=== PATIENT | male | born 1935 | race Caucasian/White ===

== ENCOUNTER → 2018-10-03 | Outpatient (CLI) | payer OTHER ==
[~2018-10-03] MED LIST: AMLO5TAB7 PO; ASPI-1197 PO; CARV12.511 PO; CLOP75TA32 PO; GLUC-206 PO; LORA-705 PO; MAGNESIUM WITH ZINC PO; MULT-1258 PO; RANO500T2 PO; ROSE HIPS PO; ROSU20TA PO; SAW450CA7 PO; VIT B12 PO; VIT C PO; VIT E PO; thyroxine PO
== END | disposition home or self-care (01) ==
LOC: SHCH 08:08
PROVIDERS: ATTEND Internal Medicine Cardiovascular Disease
DX: I87.2 Venous insufficiency (chronic) (peripheral) (principal)
CPT/HCPCS: 93970

== ENCOUNTER 2019-09-29 12:54 | Inpatient (IN) | payer OTHER ==
[~2019-09-29] VITALS: Ht 175.3 cm; Wt 88.6 kg
[~2019-09-29 12:54] MED LIST changes: -AMLO5TAB7 PO; +AMLO5TAB9 PO; -ROSU20TA PO; +ROSU20TA23 PO
[2019-09-29] MEDS ORDERED: ACETAMINOPHEN 325 MG TAB PO PRN (13:30)
[2019-09-29] MEDS ORDERED: PANTOPRAZOLE SODIUM 80 MG in NS 100ML IVP SCH (13:30)
[2019-09-29] MEDS ORDERED: ONDANSETRON HCL 4 MG/2 ML VIAL IVP PRN (13:30)
[2019-09-29 13:58] LABS: BASOPHILS % (AUTO) 0.3 % (0.0-5.0); EOSINOPHILS % (AUTO) 1.4 % (0.0-8.0); HEMATOCRIT 26.3 % (42-54); LYMPHOCYTES % (AUTO) 15.2 % (21.0-51.0); MEAN CORPUSCULAR HEMOGLOBIN 33.4 pg (27.0-33.0); MEAN CORPUSCULAR HGB CONC 34.3 g/dL (32.0-36.0); MEAN CORPUSCULAR VOLUME 97.5 fL (79-99); MONOCYTES % (AUTO) 8.9 % (3.0-13.0); NEUTROPHILS % (AUTO) 74.2 % (40.0-77.0); NUCLEATED RED BLOOD CELLS 0.1 % (0.0-0.19); PLATELET COUNT (AUTO) 132 K/uL (130-400); RED CELL DISTRIBUTION WIDTH 14.8 % (11.0-15.5); WHITE BLOOD COUNT (AUTO) 9.8 K/uL (4.8-10.8)
[2019-09-29 14:17] LABS: INR 1.09 (0.85-1.15); PROTHROMBIN TIME 11.4 SEC (9.6-11.6)
[2019-09-29 14:18] LABS: CREATININE 1.5 mg/dL (0.5-1.5); POTASSIUM 4.1 mmol/L (3.5-5.1)
[2019-09-29 14:23] LABS: ALBUMIN 2.9 g/dL (3.5-5.0); BILIRUBIN,TOTAL 0.4 mg/dL (0.2-1.0); TOTAL PROTEIN, SERUM 5.6 g/dL (6.0-8.3)
[2019-09-29] MEDS ORDERED: SODIUM CHLORIDE 0.9% 100 ML IV ONE (14:26)
[2019-09-29 15:30] VITALS: BP 106/68
--- NOTE | 2019-09-29 16:10 | NUR ---
DR ALVA OFFICE CB SPOKE TO DARIN REGARDING PT HX AND MEDICATIONS. PER DARIN SHE WILL CB WITH ORDERS
[2019-09-29] MEDS ORDERED: NAPR220T57 PO (17:51)
[2019-09-29] MEDS ORDERED: SAW1CAPS7 PO (17:51)
[2019-09-29] MEDS ORDERED: GLUC-252 PO (17:51)
[2019-09-29] MEDS ORDERED: MULT-1289 PO (17:51)
[2019-09-29] MEDS ORDERED: CLOP75TA14 PO (17:51)
[2019-09-29] MEDS ORDERED: LEVO112T7 PO (17:51)
[2019-09-29] MEDS ORDERED: CALC-116 PO (17:57)
[2019-09-29] MEDS ORDERED: ROSU20TA31 PO (17:57)
[2019-09-29] MEDS ORDERED: BETA1TAB18 PO (17:57)
[2019-09-29] MEDS ORDERED: CARV6.25 PO (17:57)
[2019-09-29] MEDS ORDERED: CARV12.511 PO (17:57)
[2019-09-29] MEDS ORDERED: LORA10TA7 PO (17:57)
[2019-09-29] MEDS ORDERED: BUDE10.2 IH (17:57)
[2019-09-29] MEDS ORDERED: FLUT16H NASAL (17:57)
[2019-09-29 20:03] VITALS: BP 96/63
--- NOTE | 2019-09-29 20:07 | NUR ---
PT REFUSING TEDS FOR NIGHT TIME
[2019-09-29 20:39] LABS: HEMATOCRIT 23.5 % (42-54)
--- NOTE | 2019-09-29 22:59 | NUR ---
DARIN WITH DR. ALVA CALLED ORDERS FOR EGD W [facility] AT[address] NEEMA BERRIOS AWARE STATED WILL VERIFY W DARIN TELEPHONE GIVEN
[2019-09-29 23:20] VITALS: BP 106/76
[2019-09-30] VITALS (19 sets, daily range): BP systolic 83–148; BP diastolic 50–80
[2019-09-30] MEDS ORDERED: LIDOCAINE HCL-MPF 2% 5ML VIAL ONE (10:48)
[2019-09-30] MEDS ORDERED: PROPOFOL 10 MG/ML 20ML VIAL IV ONE (10:48)
[2019-09-30] MEDS ORDERED: GLYCOPYRROLATE 0.2 MG/ML 5 ML VIAL ONE (10:48)
[2019-09-30] MEDS ORDERED: MORPHINE SULFATE 2 MG/ML 1ML SYG IV PRN (11:15)
[2019-09-30] MEDS ORDERED: HYDRALAZINE HCL 20 MG/ML VIAL IV PRN (11:15)
--- NOTE | 2019-09-30 12:33 | NUR ---
DC PLAN PER PATIENT HE IS INDEPENDENT, LIVES WITH SPOUSE, HAS A CANE AND NEBULIZER MACHINE, NO PROVIDER SERVICES AND FEELS SAFE TO RETURN HOME. Addendum: 09/30/19 at 1234 by OLIVE ALVA RN CM Amended: Links added.
[2019-09-30 12:51] LABS: HEMATOCRIT 24.3 % (42-54)
[2019-09-30] MEDS ORDERED: ACET-66 PO (14:24)
[2019-09-30] MEDS ORDERED: FERS325 PO (14:24)
[2019-09-30] MEDS ORDERED: PANT40TA25 PO (14:24)
[2019-09-30] MEDS ORDERED: FERROUS SULFATE 325 MG TABLET.DR PO SCH (21:00)
[2019-10-01] VITALS (8 sets, daily range): BP systolic 99–143; BP diastolic 65–79
[2019-10-01 05:33] LABS: HEMATOCRIT 23.1 % (42-54); MEAN CORPUSCULAR HEMOGLOBIN 33.8 pg (27.0-33.0); MEAN CORPUSCULAR HGB CONC 34.3 g/dL (32.0-36.0); MEAN CORPUSCULAR VOLUME 98.5 fL (79-99); PLATELET COUNT (AUTO) 136 K/uL (130-400); RED BLOOD CELL COUNT(AUTO) 2.34 MIL/uL (4.50-6.20); RED CELL DISTRIBUTION WIDTH 14.9 % (11.0-15.5); WHITE BLOOD COUNT (AUTO) 5.2 K/uL (4.8-10.8)
[2019-10-01 05:56] LABS: CREATININE 1.4 mg/dL (0.5-1.5); POTASSIUM 3.8 mmol/L (3.5-5.1)
[2019-10-01] MEDS: FERROUS SULFATE 325 MG TABLET.DR PO SCH ×2 (10:04→17:24)
[2019-10-01] MEDS: PANTOPRAZOLE SODIUM 40 MG TABLET.DR PO SCH ×2 (10:04→19:44)
[2019-10-01] MEDS ORDERED: TRAMADOL HCL 50 MG TABLET PO PRN (11:30)
[2019-10-01 12:21] LABS: HEMATOCRIT 26.1 % (42-54)
[2019-10-01] MEDS: HYDROCODONE/ACETAMINOPHEN 5/325 MG TAB PO PRN (15:09)
[2019-10-02] MEDS: HYDROCODONE/ACETAMINOPHEN 5/325 MG TAB PO PRN ×2 (01:13→10:34)
[2019-10-02 04:00] VITALS: BP 113/74
[2019-10-02 05:37] LABS: BASOPHILS % (AUTO) 0.5 % (0.0-5.0); EOSINOPHILS % (AUTO) 1.7 % (0.0-8.0); HEMATOCRIT 24.7 % (42-54); LYMPHOCYTES % (AUTO) 19.1 % (21.0-51.0); MEAN CORPUSCULAR HEMOGLOBIN 32.7 pg (27.0-33.0); MEAN CORPUSCULAR HGB CONC 33.6 g/dL (32.0-36.0); MEAN CORPUSCULAR VOLUME 97.2 fL (79-99); MONOCYTES % (AUTO) 9.1 % (3.0-13.0); NEUTROPHILS % (AUTO) 69.6 % (40.0-77.0); PLATELET COUNT (AUTO) 161 K/uL (130-400); RED BLOOD CELL COUNT(AUTO) 2.54 MIL/uL (4.50-6.20); RED CELL DISTRIBUTION WIDTH 15.2 % (11.0-15.5); WHITE BLOOD COUNT (AUTO) 7.8 K/uL (4.8-10.8)
[2019-10-02 05:48] LABS: CREATININE 1.4 mg/dL (0.5-1.5); POTASSIUM 3.9 mmol/L (3.5-5.1)
[2019-10-02 07:30] VITALS: BP 132/82
--- NOTE | 2019-10-02 07:40 | NUR ---
NOTE AAOX3. DENIES PAIN OR DISCOMFORT. AFEBRILE NO DISTRESS OR SOB. BBS CLEAR. C/O LOWER BACK DISCOMFORT AND HAS BEEN GETTING MEDICATION FOR THAT WHILE HE HAS BEEN HERE. DENIES ANY BLOODY STOOLS. HIS LAST BM WAS SUNDAY. CAME IN WITH BLOODY STOOLS AND HE UNDERWENT EGD WITH DR SERRANO YESTERDAY AND HE CONTINUES WITH CLEAR LIQUID DIET. WE WILL CALL DR SERRANO TO ASK WHAT THE PLAN IS MOVING FORWARD. PATIENT IS ASKING IF COLONOSCOPY WILL BE DONE. HGB HAS BEEN STEADY IN THE 8'S RANGE. STANDING ORDER FOR ONE UNIT PRBC TO BE TRANSFUSED IF HGB<7 BUT HAS NOT BEEN NEEDED THOUGH.
--- NOTE | 2019-10-02 10:00 | NUR ---
NOTE HAVE PAGED DR SERRANO THROUGH HIS OFFICE TWICE AND HAVE NOT RECEIVED A CALL FROM HIM. WILL PAGE AGAIN LATER.
[2019-10-02] MEDS: FERROUS SULFATE 325 MG TABLET.DR PO SCH (10:10)
[2019-10-02] MEDS: PANTOPRAZOLE SODIUM 40 MG TABLET.DR PO SCH (10:10)
[2019-10-02 11:00] VITALS: BP 136/82
[2019-10-02 13:03] LABS: HEMATOCRIT 26.1 % (42-54)
--- NOTE | 2019-10-02 14:15 | NUR ---
NOTE AFTER CALLING DR SERRANO OFFICE 3 TIMES THEY HAVE CALLED ME AND GAVE ORDERS FOR OKAY TO DC AND FOLLOW UP WITH HIM IN ONE WEEK. REFER TO CHART FOR ORDERS. NÉSTOR DONALD AND DR SAGASTUME MAKING ROUNDS AT THIS TIME. THEY SPOKE TO PATIENT AND MADE HIM AWARE HE WILL BE DISCHARGED TODAY AFTER DINNER IF HE TOLERATES DIET WELL FOR THEY ORDERED TO ADVANCE IT.
--- NOTE | 2019-10-02 18:00 | NUR ---
NOTE DISCHARGE INSTRUCTIONS GIVEN AT THIS TIME. REFER TO DC SUMMARY FOR DETAILS. STABLE UPON LEAVING
== END 2019-10-02 18:14 | disposition home or self-care (01) | DRG 378 ==
LOC: EDH 12:54 → EDHIP 12:55 → 4BH 14:47
PROVIDERS: ADMIT Internal Medicine; ATTEND Internal Medicine
PROC: 0DB68ZX Excision of Stomach, Via Natural or Artificial Opening Endoscopic, Diagnostic (ICD-10-PCS; principal; 2019-09-30)
DX: K25.4 Chronic or unspecified gastric ulcer with hemorrhage (principal); D62 Acute posthemorrhagic anemia; I48.20 Chronic atrial fibrillation, unspecified; I50.42 Chronic combined systolic (congestive) and diastolic (congestive) heart failure; E78.5 Hyperlipidemia, unspecified; E03.9 Hypothyroidism, unspecified; I11.0 Hypertensive heart disease with heart failure; K31.89 Other diseases of stomach and duodenum; K26.9 Duodenal ulcer, unspecified as acute or chronic, without hemorrhage or perforation; I25.10 Atherosclerotic heart disease of native coronary artery without angina pectoris; N28.9 Disorder of kidney and ureter, unspecified; Z79.1 Long term (current) use of non-steroidal anti-inflammatories (NSAID); Z95.2 Presence of prosthetic heart valve; Z83.3 Family history of diabetes mellitus; Z82.5 Family history of asthma and other chronic lower respiratory diseases; Z82.49 Family history of ischemic heart disease and other diseases of the circulatory system; Z82.3 Family history of stroke; Z82.0 Family history of epilepsy and other diseases of the nervous system
CPT/HCPCS: 36415; 36430; 43239; 80048; 80053; 85014; 85018; 85025; 85027; 85610; 85730; 86850; 86900; 86901; 86922; 88305; C9113; G0378; J2704; J3490

== ENCOUNTER → 2019-11-11 | Outpatient (CLI) | payer OTHER ==
[~2019-11-11] MED LIST changes: +ACET-66 PO; -AMLO5TAB9 PO; -ASPI-1197 PO; +BETA1TAB18 PO; +BUDE10.2 IH; +CALC-116 PO; +CARV6.25 PO; -CLOP75TA32 PO; +FERS325 PO; +FLUT16H NASAL; -GLUC-206 PO; +GLUC-252 PO; +LEVO112T7 PO; -LORA-705 PO; +LORA10TA7 PO; -MAGNESIUM WITH ZINC PO; -MULT-1258 PO; +MULT-1289 PO; +PANT40TA25 PO; -RANO500T2 PO; -ROSE HIPS PO; -ROSU20TA23 PO; +ROSU20TA31 PO; +SAW1CAPS7 PO; -SAW450CA7 PO; -VIT B12 PO; -VIT C PO; -VIT E PO; -thyroxine PO
--- NOTE | 2019-11-11 10:00 | NUR ---
MBSS COMPLETED. SHALLOW TRANSIENT PENETRATION WITH THIN LIQUIDS VIA LARGE CUP SIP. RECOMMEND REGULAR TEXTURE, THIN LIQUIDS; PILLS WHOLE (ONE BY ONE). RECOMMENDATIONS. 1. SKILLED SPEECH THERAPY 2-3XWK TARGETING PHARYNGEAL SWALLOW. Addendum: 11/12/19 at 0846 by GARLAND MONTES, SPT ST Amended: Links added.
== END | disposition home or self-care (01) ==
LOC: RAH 09:14
PROVIDERS: ATTEND Family Medicine
DX: R13.13 Dysphagia, pharyngeal phase (principal); T17.308D Unspecified foreign body in larynx causing other injury, subsequent encounter; X58.XXXD Exposure to other specified factors, subsequent encounter
CPT/HCPCS: 74230; 92611

== ENCOUNTER → 2020-07-13 | Outpatient (CLI) | payer OTHER | END | disposition home or self-care (01) | LOC: SHCH 08:01 | PROVIDERS: ATTEND Internal Medicine Cardiovascular Disease | DX: I71.4 Abdominal aortic aneurysm, without rupture (principal) | CPT/HCPCS: 93978 ==

== ENCOUNTER 2021-07-20 09:40 | Day surgery (SDC) | payer MEDICARE ==
[2021-07-14 13:09] LABS: BASOPHILS % (AUTO) 0.6 % (0.0-5.0); EOSINOPHILS % (AUTO) 2.5 % (0.0-8.0); HEMATOCRIT 40.9 % (42-54); LYMPHOCYTES % (AUTO) 25.7 % (21.0-51.0); MEAN CORPUSCULAR HEMOGLOBIN 32.6 pg (27.0-33.0); MEAN CORPUSCULAR HGB CONC 32.5 g/dL (32.0-36.0); MEAN CORPUSCULAR VOLUME 100.2 fL (79-99); MONOCYTES % (AUTO) 14.5 % (3.0-13.0); NEUTROPHILS % (AUTO) 56.4 % (40.0-77.0); PLATELET COUNT (AUTO) 171 K/uL (130-400); RED BLOOD CELL COUNT(AUTO) 4.08 MIL/uL (4.50-6.20); RED CELL DISTRIBUTION WIDTH 13.2 % (11.0-15.5); WHITE BLOOD COUNT (AUTO) 6.8 K/uL (4.8-10.8)
[2021-07-14 13:22] LABS: CREATININE 1.4 mg/dL (0.5-1.5); POTASSIUM 4.9 mmol/L (3.5-5.1)
[2021-07-14 13:44] LABS: INR 1.24 (0.85-1.15); PROTHROMBIN TIME 13.3 SEC (9.6-11.6)
[2021-07-14 13:46] LABS: PARTIAL THROMBOPLASTIN TIME 28.5 SEC (26.3-35.5)
[2021-07-19 12:59] VITALS: BP 136/79
[~2021-07-20] VITALS: Ht 172.7 cm; Wt 83.1 kg
[2021-07-20] VITALS (9 sets, daily range): BP systolic 112–161; BP diastolic 64–98
[~2021-07-20 09:40] MED LIST changes: +0.9% NACL 500ML IV.SOLN 500 ML IV SCH; -ACET-66 PO; +ASPI-1005 PO; -BUDE10.2 IH; -CARV6.25 PO; -PANT40TA25 PO; +PANT40TA54 PO
[2021-07-20] MEDS ORDERED: DOCUSATE PO (10:56)
[2021-07-20] MEDS ORDERED: TAMS-1 PO (10:56)
[2021-07-20] MEDS ORDERED: CARV25TA PO ×2 (10:56)
[2021-07-20] MEDS ORDERED: BUPR1PAT20 TD (10:56)
[2021-07-20] MEDS ORDERED: FEXO1TAB8 PO (10:56)
[2021-07-20] MEDS ORDERED: FERR-82 PO (10:56)
[2021-07-20] MEDS ORDERED: 0.9%NACL 1000ML 1,000 ML IV ONE (11:04)
[2021-07-20] MEDS ORDERED: MEPERIDINE-PF 25 MG/ML SYG ONE ×3 (12:33→14:36)
[2021-07-20] MEDS ORDERED: BUPIVACAINE/PF 0.25% 30ML VIAL IJ ONE (12:33)
[2021-07-20] MEDS ORDERED: LIDOCAINE HCL 1% MDV 50ML VIAL ONE (12:33)
[2021-07-20] MEDS ORDERED: MIDAZOLAM HCL 1 MG/ML 2ML VIAL ONE ×3 (12:33→14:36)
[2021-07-20] MEDS ORDERED: CEFAZOLIN SODIUM 1 GM VIAL ONE (12:33)
[2021-07-20] MEDS ORDERED: THROMBIN-JMI 5000 UNIT/VIAL TP ONE (14:48)
[2021-07-20] MEDS ORDERED: ACETAMINOPHEN WITH CODEINE 1 TAB TAB PO PRN (15:30)
== END 2021-07-20 18:37 | disposition home or self-care (01) ==
LOC: DAH 09:40
PROVIDERS: ATTEND Internal Medicine Cardiovascular Disease
DX: Z45.02 Encounter for adjustment and management of automatic implantable cardiac defibrillator (principal); I44.2 Atrioventricular block, complete; I08.3 Combined rheumatic disorders of mitral, aortic and tricuspid valves; I42.2 Other hypertrophic cardiomyopathy; I11.0 Hypertensive heart disease with heart failure; I50.42 Chronic combined systolic (congestive) and diastolic (congestive) heart failure; I48.21 Permanent atrial fibrillation; E78.5 Hyperlipidemia, unspecified; I25.10 Atherosclerotic heart disease of native coronary artery without angina pectoris; Z79.82 Long term (current) use of aspirin; Z79.890 Hormone replacement therapy; Z98.890 Other specified postprocedural states; Z79.01 Long term (current) use of anticoagulants; Z79.899 Other long term (current) drug therapy; Z87.891 Personal history of nicotine dependence; Z82.49 Family history of ischemic heart disease and other diseases of the circulatory system; Z95.5 Presence of coronary angioplasty implant and graft
CPT/HCPCS: 33262; 36415; 80048; 85025; 85610; 85730; 93005; 93306; 93356; A4215; A4216; A4221; A4222; A4223 ×3; A4606; A4663; C1722; J0690; J2175 ×3; J2250 ×3; J3490 ×3; J7030; 99156; 99157

== ENCOUNTER → 2022-08-04 | Outpatient (CLI) | payer MEDICARE ==
[~2022-08-04] MED LIST changes: -0.9% NACL 500ML IV.SOLN 500 ML IV SCH; -BETA1TAB18 PO; -CALC-116 PO; -CARV12.511 PO; -FERS325 PO; +FINA5TAB41 PO; -FLUT16H NASAL; -GLUC-252 PO; +IPRA3S NASAL; +LEVO112T4 PO; -LEVO112T7 PO; -LORA10TA7 PO; -MULT-1289 PO; +OXYB5TAB15 PO; -SAW1CAPS7 PO; +TAMS-1 PO
== END | disposition home or self-care (01) ==
LOC: RAH 13:32
PROVIDERS: ATTEND Internal Medicine Cardiovascular Disease
DX: I27.20 Pulmonary hypertension, unspecified (principal); R06.09 Other forms of dyspnea; I42.1 Obstructive hypertrophic cardiomyopathy; Z95.810 Presence of automatic (implantable) cardiac defibrillator
CPT/HCPCS: 93306